=== PATIENT | female | born 1980 | race Caucasian/White ===

== ENCOUNTER 2019-08-03 16:39 | Emergency (ER) | payer OTHER ==
[~2019-08-03] VITALS: Ht 157.5 cm; Wt 66.2 kg
[2019-08-03] MEDS ORDERED: NORCO 5-325 TA1 EAC1 PO (18:13)
[2019-08-03] MEDS ORDERED: ROBAXIN 750 MG750 MG PO (18:13)
[2019-08-03] MEDS ORDERED: IBUPROFEN 600600 M1 PO (18:13)
[2019-08-03 18:38] VITALS: BP 135/87
== END 2019-08-03 18:39 | disposition home or self-care (01) ==
LOC: M.ERS 16:39
DX: M54.6 Pain in thoracic spine (principal); M25.512 Pain in left shoulder; Z88.1 Allergy status to other antibiotic agents

== ENCOUNTER 2020-09-08 13:29 | Emergency (ER) | payer OTHER ==
[~2020-09-08] VITALS: Ht 157.5 cm; Wt 72.6 kg
[~2020-09-08 13:29] MED LIST: IBUPROFEN 600600 M1 PO; NORCO 5-325 TA1 EAC1 PO; ROBAXIN 750 MG750 MG PO
[2020-09-08] MEDS ORDERED: NEURONTIN300 MG PO (13:46)
[2020-09-08] MEDS ORDERED: BACLOFEN 10MG T10 MG PO (13:46)
[2020-09-08] MEDS ORDERED: PERCOCET 5-3251 EACH PO (13:47)
[2020-09-08] MEDS ORDERED: DOXAPIN (13:47)
[2020-09-08 14:12] LABS: ABSOLUTE MONOCYTES 0.7 thou/uL (0.0-1.2); ABSOLUTE NEUTROPHILS 3.3 thou/uL (1.6-8.1); BASOPHILS 0.2 %; EOSINOPHILS 0.7 %; HEMATOCRIT 33.5 % (37.0-47.0); HEMOGLOBIN 10.7 gm/dL (12.0-15.0); LYMPHOCYTES 42.9 %; MCH 24.2 pg (26.0-34.0); MCHC 31.9 g/dL (28.0-37.0); MCV 75.8 fL (80.0-100.0); MONOCYTES 9.3 %; MPV 7.4 fl. (7.2-11.1); NUCLEATED RBCS 0 /100WBC; PLATELET COUNT* 325 thou/uL (150-400); POLYS 46.9 %; RBC 4.42 mil/uL (4.20-5.00); RDW-CV 17.6 % (10.5-14.5)
[2020-09-08 14:29] LABS: APTT 24.2 Seconds (25.0-31.3); PROTIME 10.4 Seconds (9.20-11.50)
[2020-09-08 14:33] LABS: ANION GAP 10 mmol/L (7-16); BUN 12 mg/dL (7-18); CALCIUM 8.7 mg/dL (8.5-10.1); CHLORIDE 106 mmol/L (98-107); CO2 25 mmol/L (21-32); CREATININE 0.8 mg/dL (0.6-1.3); GLUCOSE 89 mg/dL (70-99); POTASSIUM 3.6 mmol/L (3.5-5.1); SODIUM 141 mmol/L (136-145)
[2020-09-08 14:43] LABS: ALBUMIN 3.4 g/dL (3.4-5.0); ALKALINE PHOSPHATASE 73 U/L (46-116); CK-MB MASS < 0.5 ng/mL (<0.5-3.6); NT-PRO BRAIN NAT PEPTIDE 174 pg/mL (<300); SGOT 29 U/L (15-37); SGPT 28 U/L (30-65); TOTAL BILIRUBIN 0.1 mg/dL (<0.1-1.0)
[2020-09-08 15:31] VITALS: BP 136/77
--- NOTE | 2020-09-08 17:40 | EKG ---
[place] [address] ELECTROCARDIOGRAM REPORT Name: BRETTLISSETH Rose Room: 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1980 Requested By: Jp Bergeron Order Number: [id number] MD: Alex Gambino Measurements Intervals [place] Rate: 58 P: -19 PA: 164 QRS: 11 QRSD: 85 T: 7 QT: 447 QTc: 440 Interpretive Statements Sinus rhythm Abnormal R-wave progression, late transition No previous ECG available for comparison Electronically Signed On 09-08-2020 17:40:23 JEWELRY RACKER by Alex Gambino [email or web address] <ELECTRONICALLY SIGNED> By: Alex Gambino MD, [facility] 09/08/20 1740 141 15 Alex Gambino MD, [facility] /EPI
== END 2020-09-08 15:31 | disposition home or self-care (01) ==
LOC: M.ERS 13:29
PROVIDERS: Family Medicine
DX: F41.0 Panic disorder [episodic paroxysmal anxiety] (principal); R53.1 Weakness; M79.89 Other specified soft tissue disorders; Z98.84 Bariatric surgery status; Z79.899 Other long term (current) drug therapy; Z88.1 Allergy status to other antibiotic agents